=== PATIENT | male | born 1975 | race Caucasian/White ===

== ENCOUNTER 2023-03-27 10:21 | Outpatient (CLI) | payer OTHER, SELFPAY | END 2023-03-27 10:22 | disposition home or self-care (01) | PROVIDERS: PCP Family Medicine; Visit Provider Physician Assistant Medical | DX: Z00.00 Encounter for general adult medical examination without abnormal findings (principal); R79.89 Other specified abnormal findings of blood chemistry; F41.9 Anxiety disorder, unspecified; Z13.6 Encounter for screening for cardiovascular disorders | CPT/HCPCS: 80053; 80061 ==

== ENCOUNTER 2023-04-10 07:32 | Outpatient (CLI) | payer OTHER, SELFPAY ==
--- NOTE | 2023-04-10 07:53 | W.ANESCHARGE ---
Anesthesia Charges Start Date/Time Anesthesia Start Date: 04/10/23 Anesthesia Start Time: 08:15 Stop Date/Time Anesthesia Stop Date: 04/10/23 Anesthesia Stop Time: 08:40
--- NOTE | 2023-04-10 08:43 | W.ANESCHARGE ---
Anesthesia Charges Start Date/Time Anesthesia Start Date: 04/10/23 Anesthesia Start Time: 08:15 Stop Date/Time Anesthesia Stop Date: 04/10/23 Anesthesia Stop Time: 08:40
== END 2023-04-10 07:33 | disposition home or self-care (01) ==
LOC: OP CLINIC 07:33
PROVIDERS: PCP Physician Assistant Medical; Visit Provider Internal Medicine
DX: Z12.11 Encounter for screening for malignant neoplasm of colon (principal); K63.5 Polyp of colon; K57.30 Diverticulosis of large intestine without perforation or abscess without bleeding
CPT/HCPCS: 45380; 811; 88305; J2704

== ENCOUNTER 2025-02-26 09:23 | Outpatient (CLI) | payer OTHER, SELFPAY | END 2025-02-26 09:24 | disposition home or self-care (01) | LOC: FRMREF 09:24 | PROVIDERS: PCP Physician Assistant Medical; Visit Provider Physician Assistant Medical | DX: Z00.00 Encounter for general adult medical examination without abnormal findings (principal); K30 Functional dyspepsia; N52.8 Other male erectile dysfunction; Z13.6 Encounter for screening for cardiovascular disorders; Z12.5 Encounter for screening for malignant neoplasm of prostate; Z13.810 Encounter for screening for upper gastrointestinal disorder | CPT/HCPCS: 80053; 80061; 82784; 84443; 86231; 86258; 86364; G0103 ==